=== PATIENT | female | born 1950 ===

== ENCOUNTER → 2017-03-10 | Outpatient (CLI) | payer MEDICARE, BC ==
[2017-03-10 14:34] LABS: CHLORIDE,CL 104 mmol/L (98-110); SODIUM,NA 139 mmol/L (136-146)
== END ==
LOC: MW.CHFP 12:50
PROVIDERS: ATTEND Physician Assistant
DX: R39.9 Unspecified symptoms and signs involving the genitourinary system (principal); L29.8 Other pruritus; L02.214 Cutaneous abscess of groin
CPT/HCPCS: 36415; 80048; 81001; 85025; G0463

== ENCOUNTER → 2017-03-11 | Outpatient (CLI) | payer MEDICARE, BC | LOC: MW.CHFP 10:08 | PROVIDERS: ATTEND Physician Assistant | DX: L02.214 Cutaneous abscess of groin (principal) | CPT/HCPCS: 10060; 87070; 87205 ==